=== PATIENT | female | born 1990 | race Caucasian/White ===

== ENCOUNTER 2023-09-14 07:01 | Inpatient (IN) | payer OTHER ==
[~2023-09-14 07:01] MED LIST: Lidocaine 1% 10 ML MDV ONE; ePHEDrine 50 MG/ML SDV ONE
[2023-09-14] MEDS ORDERED: Ondansetron 4 MG/2 ML SDV IVPUSH PRN (07:14)
[2023-09-14] MEDS ORDERED: Nalbuphine HCl 10 MG/ 1ML Amp IVPUSH PRN (07:14)
[2023-09-14] MEDS ORDERED: Lidocaine 1% 50 ML MDV INJECT PRN (07:14)
[2023-09-14] MEDS ORDERED: Calcium Carbonate 500 MG Tab.Chew PO PRN (07:14)
[2023-09-14] MEDS ORDERED: Oxytocin/Lactated Ringers 30 UNIT/500 ML BAG IV SCH ×2 (07:30→08:30)
[2023-09-14 07:48] LABS: BASOPHILS PERCENT AUTO 0.5 % (0.0-1.0); EOSINOPHILS ABSOLUTE AUTO 0.2 K/mm3 (0.0-0.4); EOSINOPHILS PERCENT AUTO 2.6 % (0.0-6.0); HEMATOCRIT 34.5 % (37.0-47.0); HEMOGLOBIN 11.2 gm/dl (12.0-16.0); IMMATURE GRAN ABSOLUTE AUTO 0.05 K/mm3 (0.00-0.05); IMMATURE GRAN PERCENT AUTO 0.6 % (0.0-0.4); LYMPHOCYTES ABSOLUTE AUTO 1.3 K/mm3 (1.0-4.8); LYMPHOCYTES PERCENT AUTO 15.6 % (24.0-44.0); MEAN CORPUSCULAR HEMOGLOBIN 28.9 pg (28.0-32.0); MEAN CORPUSCULAR HGB CONC 32.5 g/dl (32.0-36.0); MEAN CORPUSCULAR VOLUME 89.1 fl (83.0-99.0); MEAN PLATELET VOLUME 10.7 fl (9.4-12.3); MONOCYTES ABSOLUTE AUTO 0.6 K/mm3 (0.0-0.8); MONOCYTES PERCENT AUTO 6.7 % (0.0-8.0); NEUTROPHILS ABSOLUTE AUTO 6.3 K/mm3 (1.8-7.7); PLATELET COUNT,PLT 241 K/mm3 (150-400); RED BLOOD CELL COUNT 3.87 M/mm3 (4.10-5.30); WHITE BLOOD CELL COUNT,WBC 8.53 K/mm3 (3.9-11.3)
[2023-09-14] MEDS: Lactated Ringers 1,000 ML IV SCH ×2 (08:09→16:35)
[2023-09-14] MEDS ORDERED: ePHEDrine 50 MG/ML SDV IVPUSH PRN (09:10)
[2023-09-14] MEDS ORDERED: diphenhydrAMINE 50 MG/ML SDV IVPUSH PRN (09:10)
[2023-09-14] MEDS ORDERED: fentaNYL 100 MCG/2 ML SDV EPIDUR PRN (09:10)
[2023-09-14] MEDS: Bupivacaine/fentaNYL/NS 100 ML Bag EPIDUR PRN (16:23)
[2023-09-15] MEDS: Bupivacaine/fentaNYL/NS 100 ML Bag EPIDUR PRN ×2 (00:52→08:10)
[2023-09-15] MEDS ORDERED: ceFAZolin 1 GM in Sodium Chloride 0.9% 50 ML IV ONE (12:26)
[2023-09-15] MEDS ORDERED: Bupivacaine 0.5% 30 ML SDV ONE (12:26)
[2023-09-15] MEDS ORDERED: Metoclopramide 10 MG/2 ML SDV IVPUSH ONE (12:26)
[2023-09-15] MEDS ORDERED: Citric Acid/Sodium Citrate Solution 30 ML Cup PO ONE (12:26)
[2023-09-15] MEDS ORDERED: Sodium Chloride 0.9% 10 ML Syringe FLUSH PRN (12:26)
[2023-09-15] MEDS ORDERED: Lactated Ringers 1,000 ML IV SCH (12:30)
[2023-09-15] MEDS ORDERED: Lidocaine 2% with EPINEPHrine 1:200,000 20 ML SDV ONE (12:35)
[2023-09-15] MEDS ORDERED: ceFAZolin 2 GM Vial ONE (12:35)
[2023-09-15] MEDS ORDERED: Sodium Bicarbonate 8.4% 50 MEQ/50 ML SDV ONE (12:35)
[2023-09-15] MEDS ORDERED: Methylergonovine 0.2 MG/1 ML Amp ONE (13:05)
[2023-09-15] MEDS ORDERED: Misoprostol 200 MCG Tab ONE (13:07)
[2023-09-15] MEDS ORDERED: Tranexamic Acid 1,000 MG/10 ML Vial ONE (13:17)
[2023-09-15] MEDS ORDERED: diphenhydrAMINE 50 MG/ML SDV IVPUSH PRN ×2 (13:58→16:21)
[2023-09-15] MEDS ORDERED: fentaNYL 100 MCG/2 ML SDV IVPUSH PRN (13:58)
[2023-09-15] MEDS ORDERED: Meperidine 50 MG/ML Vial IVPUSH PRN (13:58)
[2023-09-15] MEDS ORDERED: Ondansetron 4 MG/2 ML SDV IVPUSH PRN (13:58)
[2023-09-15] MEDS ORDERED: Dextrose 5%-Lactated Ringers 1,000 ML IV SCH (16:21)
[2023-09-15] MEDS ORDERED: Naloxone 0.4 MG/ML SDV IVPUSH PRN (16:21)
[2023-09-15] MEDS ORDERED: Acetaminophen/oxyCODONE 325-5 MG Tab PO PRN ×2 (16:21)
[2023-09-15] MEDS ORDERED: ePHEDrine 50 MG/ML SDV IVPUSH PRN (16:21)
[2023-09-15] MEDS ORDERED: Ketorolac 30 MG/ML SDV IVPUSH SCH ×2 (16:30→19:00)
[2023-09-15] MEDS ORDERED: Sodium Chloride 0.9% 10 ML Syringe FLUSH SCH (21:00)
[2023-09-15] MEDS: Acetaminophen 325 MG Tab PO PRN (21:21)
[2023-09-16] MEDS: Ibuprofen 600 MG Tab PO PRN ×4 (01:14→21:00)
[2023-09-16] MEDS: Acetaminophen 325 MG Tab PO PRN ×5 (01:21→21:33)
[2023-09-16 05:39] LABS: BASOPHILS PERCENT AUTO 0.2 % (0.0-1.0); EOSINOPHILS PERCENT AUTO 0.1 % (0.0-6.0); HEMATOCRIT 27.6 % (37.0-47.0); IMMATURE GRAN ABSOLUTE AUTO 0.13 K/mm3 (0.00-0.05); IMMATURE GRAN PERCENT AUTO 0.7 % (0.0-0.4); LYMPHOCYTES ABSOLUTE AUTO 1.6 K/mm3 (1.0-4.8); MEAN CORPUSCULAR HEMOGLOBIN 29.2 pg (28.0-32.0); MEAN CORPUSCULAR HGB CONC 32.6 g/dl (32.0-36.0); MEAN CORPUSCULAR VOLUME 89.6 fl (83.0-99.0); MEAN PLATELET VOLUME 11.3 fl (9.4-12.3); MONOCYTES ABSOLUTE AUTO 1.3 K/mm3 (0.0-0.8); MONOCYTES PERCENT AUTO 6.8 % (0.0-8.0); NEUTROPHILS ABSOLUTE AUTO 16.4 K/mm3 (1.8-7.7); NEUTROPHILS PERCENT AUTO 84.2 % (41.0-71.0); PLATELET COUNT,PLT 188 K/mm3 (150-400); RED BLOOD CELL COUNT 3.08 M/mm3 (4.10-5.30); WHITE BLOOD CELL COUNT,WBC 19.44 K/mm3 (3.9-11.3)
[2023-09-16 05:57] LABS: INR 0.93
[2023-09-16 06:01] LABS: PTT,PARTIAL THROMBOPLSTIN TIME 29.7 SECONDS (21.7-31.4)
[2023-09-17] MEDS: Acetaminophen 325 MG Tab PO PRN ×2 (01:33→06:43)
[2023-09-17] MEDS: Ibuprofen 600 MG Tab PO PRN ×2 (03:20→08:43)
== END 2023-09-17 10:30 | disposition home or self-care (01) | DRG 788 ==
LOC: JD.OB 07:01 → OBSVTOIN 13:38 → JD.OB 13:38
PROVIDERS: ADMIT Obstetrics & Gynecology; ATTEND Obstetrics & Gynecology
PROC: 10907ZC Drainage of Amniotic Fluid, Therapeutic from Products of Conception, Via Natural or Artificial Opening (ICD-10-PCS; 2023-09-15)
PROC: 3E0R3BZ Introduction of Anesthetic Agent into Spinal Canal, Percutaneous Approach (ICD-10-PCS; 2023-09-15)
PROC: 00HU33Z Insertion of Infusion Device into Spinal Canal, Percutaneous Approach (ICD-10-PCS; 2023-09-15)
PROC: 3E033VJ Introduction of Other Hormone into Peripheral Vein, Percutaneous Approach (ICD-10-PCS; 2023-09-15)
PROC: 10D00Z1 Extraction of Products of Conception, Low, Open Approach (ICD-10-PCS; principal; 2023-09-15 12:45)
PROC: 3E0334Z Introduction of Serum, Toxoid and Vaccine into Peripheral Vein, Percutaneous Approach (ICD-10-PCS; 2023-09-16)
DX: O26.893 Other specified pregnancy related conditions, third trimester (principal); Z67.11 Type A blood, Rh negative; O62.1 Secondary uterine inertia; Z88.0 Allergy status to penicillin; Z88.8 Allergy status to other drugs, medicaments and biological substances; Z3A.39 39 weeks gestation of pregnancy; Z37.0 Single live birth
CPT/HCPCS: 36415; 51702; 59025; 85025; 85384; 85461; 85610; 85730; 86592; 86850; 86870; 86900; 86901; 94762; A9270-GY; J0690; J2210; J2405; J2765; J2790; J3010; J3490; J7120; J7999